=== PATIENT | male | born 1980 | race Caucasian/White ===

== ENCOUNTER 2018-05-27 06:54 | Emergency (ER) | payer OTHER ==
[2018-05-27 07:29] VITALS: RESP 18; O2SAT 98
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
[2018-05-27 09:09] VITALS: BP 134/93; PULSE 78; TEMP 98
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
== END 2018-05-27 08:57 | disposition home or self-care (01) ==
LOC: H.ER 06:54
DX: M79.18 Myalgia, other site (principal); E11.9 Type 2 diabetes mellitus without complications; V43.52XA Car driver injured in collision with other type car in traffic accident, initial encounter; Y92.481 Parking lot as the place of occurrence of the external cause